=== PATIENT | male | born 1950 | race Caucasian/White ===

== ENCOUNTER 2023-11-18 08:07 | Observation (INO) ==
[~2023-11-18 08:07] MED LIST: Dexamethasone IV 4 MG/ML VIAL 1 ml VIAL ONE; Lidocaine 2% PF 5 ML VIAL ONE; NS 0.45% 1000 ml BAG 1,000 ML IV SCH; Naloxone 0.4 mg VIAL 0.4 mg/ml 1 ml VIAL IV PRN; Ondansetron 4 mg VIAL 2 MG/ML 2 ml VIAL ONE; Propofol 10 MG/ML 20 ML BTL ONE; Rocuronium 50 mg VIAL 10 mg/ml 5 ml VIAL (50 mg) ONE
[2023-11-18] MEDS ORDERED: fentaNYL 100 mcg/2 ml 50 MCG/ML VIAL ONE (08:34)
[2023-11-18] MEDS ORDERED: Rocuronium 50 mg VIAL 10 mg/ml 5 ml VIAL (50 mg) ONE (08:35)
[2023-11-18] MEDS ORDERED: ceFAZolin 2 GM in NS PREMIX 2 GM/100 ML BAG IVPB ONE (08:49)
[2023-11-18 09:13] LABS: Rapid COVID-19 Molecular Undetected (Undetected)
[2023-11-18] MEDS ORDERED: Gelfoam Sponge SIZE 100 SPONGE ONE (09:48)
[2023-11-18] MEDS ORDERED: Thrombin 5,000 UNITS(BOVINE) for Ultrasound Guided Pseudoaneursym ONE (09:48)
[2023-11-18] MEDS ORDERED: Lidocaine 1% w EPI 1:200,000 SDV 30 ML VIAL ONE (09:48)
[2023-11-18] MEDS ORDERED: ceFAZolin VIAL VIAL ONE (09:48)
[2023-11-18] MEDS ORDERED: Acetaminophen IV 1 GM/100ML 1,000 MG/100 ML BAG IV ONE (10:36)
[2023-11-18] MEDS ORDERED: Naloxone 0.4 mg VIAL 0.4 mg/ml 1 ml VIAL IV PRN (11:28)
[2023-11-18] MEDS ORDERED: HYDROmorphone 1 MG/1 ML SYRINGE ONE (12:28)
[2023-11-18] MEDS: HYDROmorphone 1 MG/1 ML SYRINGE IV PRN (12:29)
[2023-11-18] MEDS ORDERED: Dextran 70/Hypromellose Tears Eye Drops 15 ml BTL (for Artificials Tears) BOTH EYES PRN (12:38)
[2023-11-18] MEDS ORDERED: Phenol 1.4% Throat Spray BTL MT PRN (12:38)
[2023-11-18] MEDS ORDERED: Benzocaine/Menthol LOZ MT PRN (12:38)
[2023-11-18] MEDS ORDERED: Ondansetron 4 mg VIAL 2 MG/ML 2 ml VIAL IV PRN (13:22)
[2023-11-18] MEDS ORDERED: Magnesium Hydroxide LIQ 30 ML UDC PO PRN (13:22)
[2023-11-18] MEDS ORDERED: Morphine 2 MG/ML SYRINGE IV PRN (13:22)
[2023-11-18] MEDS ORDERED: Calcium Carb (TUMS) 500 mg CHEW TAB PO PRN (13:22)
[2023-11-18] MEDS ORDERED: Senna TAB 8.6 mg TAB PO PRN (13:22)
[2023-11-18] MEDS: Lactated Ringers 1000 ml BAG 1,000 ML IV SCH ×2 (15:00→15:32)
[2023-11-18] MEDS: Buffered Lidocaine 1% SYRIN 1 ml INTRADERM ONE (15:32)
[2023-11-18] MEDS: Acetaminophen IV 1 GM/100ML 1,000 MG/100 ML BAG IV ONE (15:32)
[2023-11-18] MEDS: Carbidopa/Levodop 25/100 MG TAB PO SCH ×2 (15:58→18:50)
[2023-11-19] MEDS: HYDROcodone/ACETAMIN 5/325 mg TAB PO PRN ×2 (01:12→11:30)
[2023-11-19] MEDS: CMCS:Rasagiline 1 mg TAB (NF) PO SCH (09:01)
[2023-11-19 10:46] VITALS: BP 142/74
== END 2023-11-19 12:21 | disposition home or self-care (01) ==
LOC: SSU 08:07 → OR 08:07
PROVIDERS: ADMIT Neurological Surgery; ATTEND Neurological Surgery